=== PATIENT | male | born 1955 ===

== ENCOUNTER 2018-11-12 16:59 | Emergency (ER) | payer MEDICARE, MEDICAID ==
[2018-11-12] VITALS (14 sets, daily range): BP systolic 86–139; BP diastolic 35–83
[~2018-11-12] VITALS: Ht 180.3 cm; Wt 106.6 kg
[~2018-11-12 16:59] MED LIST: AZIT500T2; ESOM40CA52 PO; FERR-84 PO; LISI40TA PO; MULT-35 PO; MULTIVITAMIN; NADOLOL; NFBIOT1000 PO; NFPRILOC40; OMG1KC PO; PEGASUS; POTA99TA21 PO; RIBAVIRIN; SULF1TAB38 PO; VITAMIN C; VITAMIN D
--- NOTE | 2018-11-12 17:05 | NUR ---
Pt called to rm. Pt not in waiting room. This nurse was told pt was in the restroom. This nurse went to restroom to check on pt. was waiting outside restroom and stated to this nurse that just checked on pt and pt was fine.
[2018-11-12] MEDS ORDERED: IBUPROFEN 800 MG (MOTRIN) TAB PO ONE ×2 (17:45→19:00)
[2018-11-12] MEDS ORDERED: NS IV 500 ML 500 ML IV SCH (18:15)
[2018-11-12 18:19] LABS: WHITE BLOOD COUNT 10.4 10^3/uL (4.3-11.0)
[2018-11-12 18:20] LABS: BASOPHILS % (AUTO) 0 % (0-10); EOSINOPHILS % (AUTO) 0 % (0-10); HEMATOCRIT 29 % (40-54); HEMOGLOBIN 9.3 G/DL (13.3-17.7); LYMPHOCYTES # (AUTO) 0.8 X 10^3 (1.0-4.0); LYMPHOCYTES % (AUTO) 7 % (12-44); MEAN CORPUSCULAR HEMOGLOBIN 25 PG (25-34); MEAN CORPUSCULAR HGB CONC 32 G/DL (32-36); MEAN CORPUSCULAR VOLUME 78 FL (80-99); MONOCYTES # (AUTO) 0.3 X 10^3 (0.0-1.0); MONOCYTES % (AUTO) 3 % (0-12); NEUTROPHILS # (AUTO) 9.1 X 10^3 (1.8-7.8); NEUTROPHILS % (AUTO) 88 % (42-75); PLATELET COUNT 46 10^3/uL (130-400); RED CELL DISTRIBUTION WIDTH 23.8 % (10.0-14.5)
[2018-11-12 18:26] LABS: INR 1.6 (0.8-1.4); PROTHROMBIN TIME PATIENT 18.8 SEC (12.2-14.7)
--- NOTE | 2018-11-12 18:43 | Diagnostic Imaging Report ---
INDICATION: Fever and cough. COMPARISON: 09/01/2018. FINDINGS: Patchy consolidations are present within the lingula. No pleural effusion or pneumothorax. Right IJ Port-A-Cath has tip terminating in the lower SVC. Normal heart size. Normal mediastinal silhouette. IMPRESSION: 1. Lingular pneumonia. Advise followup PA and lateral chest radiographs in 4 weeks after appropriate medical management to ensure resolution. Dictated by: Dictated on workstation # [id number]
[2018-11-12 18:44] LABS: ALKALINE PHOSPHATASE 105 U/L (40-136); BILIRUBIN,TOTAL 2.7 MG/DL (0.1-1.0); BUN/CREATININE RATIO 22; CALCIUM 9.2 MG/DL (8.5-10.1); CARBON DIOXIDE 20 MMOL/L (21-32); CHLORIDE 98 MMOL/L (98-107); CREATININE SERUM 0.95 MG/DL (0.60-1.30); GFR ESTIMATED > 60; GLUCOSE 158 MG/DL (70-105); POTASSIUM 4.5 MMOL/L (3.6-5.0); SODIUM 130 MMOL/L (135-145)
[2018-11-12 18:45] LABS: ALANINE AMINOTRANSFERASE 35 U/L (0-55); ALBUMIN 2.6 GM/DL (3.2-4.5); BAND NEUTROPHILS 10 %; BASOPHILS % (MANUAL) 0 %; EOSINOPHILS % (MANUAL) 0 %; LYMPHOCYTES % (MANUAL) 10 %; MONOCYTES % (MANUAL) 3 %; NEUTROPHILS % (MANUAL) 77 %; NUCLEATED RED BLOOD CELLS 1; TOTAL PROTEIN 5.8 GM/DL (6.4-8.2)
[2018-11-12 18:46] LABS: ANISOCYTOSIS MODERATE; MICROCYTOSIS MODERATE
--- NOTE | 2018-11-12 18:51 | ED Cough/URI ---
General Chief Complaint: Fever-Adult/Adol Stated Complaint: SOB, FEVER, WEAK, CONFUSED Nursing Triage Note: Ambulatory to rm 6. Pt c/o fever, cough,SOB that has persisted for several days. Pt reports having liver cancer and is currently undergoing chemo. Pt reports recently being exposed to flu A. Sepsis Screen: No Definite Risk Source: patient, family History of Present Illness Date Seen by Provider: Nov 12, 2018 Time Seen by Provider: 18:34 Initial Comments 63-year-old male presenting with fever and cough for the last 3 days. He's feeling short of breath as well. 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 He follows with [facility] for his oncology. He did have Zithromax started by his oncologist. He has had dose of that on the . Today he was not feeling well and had a temperature up to 102.8 when his got home. She did take Tylenol and came into the emergency department. He also has had an exposure to someone with influenza A. Timing/Duration: getting worse Severity/Quality: moderate, productive cough (green sputum) Associated Symptoms: chest pain/soreness, cough, fever/chills, headache, muscle aches, shortness of breath Allergies and Home Medications Allergies Coded Allergies: hydrocodone (Verified Allergy, Unknown, 08/31/18) itching Home Medications Biotin 1,000 Mcg Tablet, 1,000 MCG PO DAILY, (Reported) Esomeprazole Magnesium 40 Mg Capsule.dr, 40 MG PO DAILY, (Reported) Ferrous Sulfate 325 Mg Tablet, 325 MG PO DAILY, (Reported) Lisinopril 40 Mg Tablet, 20-40 MG PO DAILY, (Reported) TAKES 1/2 TO 1 (40MG) TABLET Multivitamin 1 Each Tablet, 1 TAB PO DAILY, (Reported) Norris 3 Polyunsat Fatty Acids 1,000 Mg Cap, 1,000 MG PO DAILY, (Reported) Potassium Gluconate 99 Mg Tablet, 99 MG PO DAILY, (Reported) Patient Home Medication List Home Medication List Reviewed: Yes Review of Systems Review of Systems Constitutional: see HPI, chills, fever, malaise, weakness EENTM: nose congestion Respiratory: see HPI, cough, dyspnea on exertion, phlegm, short of breath Cardiovascular: no symptoms reported Gastrointestinal: no symptoms reported Genitourinary: no symptoms reported Musculoskeletal: muscle pain Skin: no symptoms reported Psychiatric/Neurological: No Symptoms Reported Hematologic/Lymphatic: No Symptoms Reported Immunological/Allergic: no symptoms reported Past Uscdchg-Uhdwhm-Yuusxo Hx Past Med/Social Hx: Reviewed Nursing Past Med/Soc Hx Patient Social History Alcohol Use: Denies Use Number of Drinks Today: CC Alcohol Beverage of Choice: Beer, Cheap Liquor Recreational Drug Use: No 2nd Hand Smoke Exposure: No Recent Foreign Travel: No Contact w/Someone Who Travel: No Recent Infectious Disease Expo: No Recent Hopitalizations: No Physical Abuse: No Sexual Abuse: No Seasonal Allergies Seasonal Allergies: No Past Medical History Surgeries: Yes (knee surgery) Abdominal Respiratory: No Cardiac: Yes Hypertension Neurological: No Genitourinary: No Gastrointestinal: Yes Gastrointestinal Bleed, Esophageal Varices, Cirrhosis Musculoskeletal: No Endocrine: No HEENT: No Cancer: Yes Liver Did You Recieve Any Treatments: Yes What Type of Treatment Did You: Chemotherapy (Last treatment 11/05/2018) [facility] Psychosocial: No Integumentary: No Blood Disorders: No Adverse Reaction/Blood Tranf: No Family Medical History No Pertinent Family Hx Physical Exam Vital Signs - First Documented 11/12/18 17:15 Temp 102.5 Pulse 83 Resp 18 B/P (MAP) 96/65 (75) Pulse Ox 94 O2 Delivery Room Air Capillary Refill : Less Than 3 Seconds Height: 5'11.00" Weight: 235lbs. 0.1oz. 106.101760bh; BMI Method:Stated General Appearance: mild distress Eyes: Bilateral Eye PERRL, Bilateral Eye EOMI HEENT: PERRL/EOMI, normal ENT inspection Neck: non-tender, full range of motion, supple Respiratory: lungs clear, decreased breath sounds, rhonchi Cardiovascular: normal peripheral pulses, regular rate, rhythm; No no edema (1 plus pitting edema in LE bilateral) Gastrointestinal: normal bowel sounds, non tender, soft, distended Extremities: normal range of motion, non-tender, normal inspection; No no pedal edema (1+ pitting edema BLE) Neurologic/Psychiatric: rehabilitation tech II-XII nml as tested, no motor/sensory deficits, alert, normal mood/affect, oriented x 3 Skin: No mottled, No rash Focused Exam Lactate Level 11/12/18 18:00: Lactic Acid Level 1.60 Lactic Acid Level Laboratory Tests Test 11/12/18 18:00 Lactic Acid Level 1.60 MMOL/L (0.50-2.00) Progress/Results/Core Measures Suspected Sepsis Recent Fever Within 48 Hours: Yes Infection Criteria Present: None New/Unexplained Altered Menta: No Sepsis Screen: No Definite Risk Within 3hrs of presentation: Admin fluids, Admin ABX, Blood cultures prior to ABX's, Lactate level SIRS Temperature:102.5 Pulse: 83 Respiratory Rate: 18 Laboratory Tests 11/12/18 18:00: White Blood Count 10.4 Blood Pressure 96 /65 Mean: 75 11/12/18 18:00: Lactic Acid Level 1.60 Laboratory Tests 11/12/18 18:00: Creatinine 0.95, INR Comment 1.6H, Platelet Count 46L, Total Bilirubin 2.7H Results/Orders Lab Results Laboratory Tests Test 11/12/18 18:00 11/12/18 22:20 Range/Units White Blood Count 10.4 4.3-11.0 10^3/uL Red Blood Count 3.70 L 4.35-5.85 10^6/uL Hemoglobin 9.3 L 13.3-17.7 G/DL Hematocrit 29 L 40-54 % Mean Corpuscular Volume 78 L 80-99 FL Mean Corpuscular Hemoglobin 25 25-34 PG Mean Corpuscular Hemoglobin Concent 32 32-36 G/DL Red Cell Distribution Width 23.8 H 10.0-14.5 % Platelet Count 46 L 130-400 10^3/uL Mean Platelet Volume 7.4-10.4 FL Neutrophils (%) (Auto) 88 H 42-75 % Lymphocytes (%) (Auto) 7 L 12-44 % Monocytes (%) (Auto) 3 0-12 % Eosinophils (%) (Auto) 0 0-10 % Basophils (%) (Auto) 0 0-10 % Neutrophils # (Auto) 9.1 H 1.8-7.8 X 10^3 Lymphocytes # (Auto) 0.8 L 1.0-4.0 X 10^3 Monocytes # (Auto) 0.3 0.0-1.0 X 10^3 Eosinophils # (Auto) 0.0 0.0-0.3 10^3/uL Basophils # (Auto) 0.0 0.0-0.1 10^3/uL Neutrophils % (Manual) 77 % Lymphocytes % (Manual) 10 % Monocytes % (Manual) 3 % Eosinophils % (Manual) 0 % Basophils % (Manual) 0 % Band Neutrophils 10 % Nucleated Red Blood Cells 1 Anisocytosis MODERATE Microcytosis MODERATE Prothrombin Time 18.8 H 12.2-14.7 SEC INR Comment 1.6 H 0.8-1.4 Activated Partial Thromboplast Time 39 H 24-35 SEC Sodium Level 130 L 135-145 MMOL/L Potassium Level 4.5 3.6-5.0 MMOL/L Chloride Level 98 98-107 MMOL/L Carbon Dioxide Level 20 L 21-32 MMOL/L Anion Gap 12 5-14 MMOL/L Blood Urea Nitrogen 21 H 7-18 MG/DL Creatinine 0.95 0.60-1.30 MG/DL Estimat Glomerular Filtration Rate > 60 BUN/Creatinine Ratio 22 Glucose Level 158 H 70-105 MG/DL Lactic Acid Level 1.60 0.50-2.00 MMOL/L Calcium Level 9.2 8.5-10.1 MG/DL Corrected Calcium 10.3 H 8.5-10.1 MG/DL Total Bilirubin 2.7 H 0.1-1.0 MG/DL Aspartate Amino Transf (AST/SGOT) 26 5-34 U/L Alanine Aminotransferase (ALT/SGPT) 35 0-55 U/L Alkaline Phosphatase 105 40-136 U/L Total Protein 5.8 L 6.4-8.2 GM/DL Albumin 2.6 L 3.2-4.5 GM/DL Serum Alcohol 10 <10 MG/DL Urine Color JAMA H Urine Clarity CLEAR Urine pH 6.0 5-9 Urine Specific [place] 1.015 L 1.016-1.022 Urine Protein NEGATIVE NEGATIVE Urine Glucose (UA) NEGATIVE NEGATIVE Urine Ketones NEGATIVE NEGATIVE Urine Nitrite NEGATIVE NEGATIVE Urine Bilirubin NEGATIVE NEGATIVE Urine Urobilinogen 0.2 NORMAL MG/DL Urine Leukocyte Esterase NEGATIVE NEGATIVE Urine RBC (Auto) NEGATIVE NEGATIVE Urine RBC RARE /HPF Urine WBC 5-10 H /HPF Urine Squamous Epithelial Cells RARE /HPF Urine Crystals NONE /LPF Urine Bacteria FEW H /HPF Urine Casts NONE /LPF Urine Mucus MODERATE H /LPF Urine Culture Indicated YES Micro Results Microbiology 11/12/18 Influenza Types A,B Antigen (PRERNA) - Final, Complete My Orders Orders - LEANDRO CRAVEN MD Alcohol (11/12/18 18:21) Ibuprofen Tablet (Motrin Tablet) (11/12/18 19:00) Ns Iv 1000 Ml (Sodium Chloride 0.9%) (11/12/18 19:00) Ns Iv 1000 Ml (Sodium Chloride 0.9%) (11/12/18 19:15) Vancomycin Injection (Vancomycin Injecti (11/12/18 19:15) Piperacillin/Tazobactam (Bulk) (Zosyn In (11/12/18 19:15) Levofloxacin 750 Mg/150 Ml Iv (Levaquin (11/12/18 19:15) Piperacillin Sodium/Tazobactam (Zosyn Vi (11/12/18 19:27) Ns (Ivpb) (Sodium Chloride 0.9% Ivpb Bag (11/12/18 19:28) Ns Iv 1000 Ml (Sodium Chloride 0.9%) (11/12/18 21:00) Vancomycin Injection (Vancomycin Injecti (11/12/18 21:13) Water (Sterile) For Injection (Sterile W (11/12/18 21:13) Norepinephrine (Levophed) (11/12/18 21:30) Medications Given in ED Current Medications Medications Dose Ordered Sig/Mony Route Start Time Stop Time Status Last Admin Dose Admin Ibuprofen 800 mg ONCE ONCE PO 11/12/18 17:45 11/12/18 17:46 DC 11/12/18 18:14 800 MG Levofloxacin/ Dextrose 150 ml @ 100 mls/hr ONCE ONCE IV 11/12/18 19:15 11/12/18 20:44 DC 11/12/18 19:47 100 MLS/HR Piperacillin Sod/ Tazobactam Sod 4.5 gm/Sodium Chloride 120 ml @ 240 mls/hr ONCE ONCE IV 11/12/18 19:15 11/12/18 19:44 DC 11/12/18 19:48 240 MLS/HR Sodium Chloride 100 ml @ ud STK-MED ONCE .ROUTE 11/12/18 19:28 11/12/18 19:31 DC 11/12/18 19:57 240 MLS/HR Sterile Water 20 ml @ ud STK-MED ONCE .ROUTE 11/12/18 21:13 11/12/18 21:16 DC 11/12/18 21:29 20 MLS/HR Vancomycin HCl 1,000 mg STK-MED ONCE .ROUTE 11/12/18 21:13 11/12/18 21:15 DC 11/12/18 21:29 1,000 MG Vital Signs/I&O 11/12/18 17:15 Temp 102.5 Pulse 83 Resp 18 B/P (MAP) 96/65 (75) Pulse Ox 94 O2 Delivery Room Air 11/13/18 00:00 Intake Total 2890 ml Balance 2890 ml Capillary Refill : Less Than 3 Seconds Blood Pressure Mean: 75 Progress Note #1: Time: 18:30 Progress Note I assumed care from dayshift and worked up patient for sepsis and hypotension. Progress Note #2: Time: 19:00 Progress Note CXR showing signs of lingular pneumonia and Influenza swab came back positive for Influenza A. With his recent chemotherapy last week and having high fever, even though he is not neutropenic will still start him on Vancomycin, Levaquin and Zosyn since he is at risk for hospital acquired infection/pneumonia. He has had orders for 2 sets of blood cultures from day shift already. His blood pressure was low so 2 liters of NS were ordered in addition to the 500 mL NS bolus ordered by dayshift. He had a normal Lactic acid of 1.6 so he does not appear to be septic but still has elevated fever and other SIRS criteria. Progress Note #3: Time: 20:20 Progress Note After 2500 ML of NS bolus he has improved BP up to 139/78 and states he is feeling better. His temp has come down to normal as well. I placed a page to the transfer center to evaluate for possible transfer and updated the patient and family. His labs appear stable for him with normal WBC count and chronic anemia, thrombocytopenia, stable Chemistry and elevated Coags. Progress Note #4: Time: 20:40 Progress Note Fe with Transfer center called back and I gave her the basic information on the patient. She called back at 2124 with a medical bed assignment for him but by then his blood pressure had started to drift back down to hypotension around 90 systolic so I ordered Levophed to help support his pressures. This also changed his status to where he would require an ICU bed and she called back at [address] Eubanks as the accepting physician and he was admitted to [facility]. He continued to remain stable while waiting for transport to and his pressures improved to above 100 Systolic. Diagnostic Imaging Diagonstic Imaging: Xray Plain Films/CT/US/NM/MRI: chest Comments Radiology read his CXR as having a Lingular infiltrate NAME: BARBARA DWYER [facility] REC#: [id number] PT STATUS: REG ER : 1955 PHYSICIAN: JOSEPH NOLAN DO ADMIT DATE: 11/12/18/ER FS Signed Date of Exam:11/12/18 CHEST PA/LAT (2 VIEW) INDICATION: Fever and cough. COMPARISON: 09/01/2018. FINDINGS: Patchy consolidations are present within the lingula. No pleural effusion or pneumothorax. Right IJ Port-A-Cath has tip terminating in the lower SVC. Normal heart size. Normal mediastinal silhouette. IMPRESSION: 1. Lingular pneumonia. Advise followup PA and lateral chest radiographs in 4 weeks after appropriate medical management to ensure resolution. Dictated by: Dictated on workstation # [id number] Dict: 11/12/18 1839 Trans: 11/12/18 [id number] Interpreted by: HEIDI BACK MD Electronically signed by: HEIDI BACK MD 11/12/181850 Reviewed: Reviewed by [facility] Critical Care Note Critical Care Total Time (minutes) 60 minutes Progress 60 minutes spent in critical care time. Time spent in direct care of the patient and reviewing chart and obtaining history from patient and chart, ordering tests and reviewing results, ordering interventions and reviewing response, discussion with consultants and with family, documentation in the chart. Departure Impression Primary Impression: Influenza A Additional Impressions: Lingular pneumonia Hypotension Qualified Codes: I95.9 - Hypotension, unspecified Immunocompromised patient Disposition: SHT-TRM HOSP Condition: Stable Transfer Time Spoke to Accepting Phy: 21:45 Transfer Progress Notes 2025 I spoke Shameka at the [facility] transfer Center. 2039 Fe from the transfer center back in the initial information on the patient for transfer 2124 Fe called back with information about the patient to be admitted to the medical surface however in the meantime his blood pressure has started to drift back down and he was hypotensive again. In light of this he was started on levo fed and she stated that he would need to be admitted to the ICU. 2144 Dr. Eubanks is the accepting ICU doctor and patient will be going to [place] [id number]. Transfer Facility: [facility] Method of Transfer: EMS Departure-Patient Inst. Referrals: NO,LOCAL PHYSICIAN (PCP) Primary Care Physician LEANDRO CRAVEN MD Nov 12, 2018 18:51
[2018-11-12] MEDS ORDERED: NS IV 1000 ML 1,000 ML IV SCH ×3 (19:00→21:00)
--- NOTE | 2018-11-12 19:05 | NUR ---
assumed care of this patient at this time from Jonelle MOISE
[2018-11-12] MEDS ORDERED: PIPERACILLIN/TAZOBACTAM (BULK) 4.5 GM in NS (IVPB) 100 ML IV ONE (19:15)
[2018-11-12] MEDS ORDERED: VANCOMYCIN INJECTION 1,000 MG in NS (IVPB) 250 ML IV SCH (19:15)
[2018-11-12] MEDS ORDERED: LEVOFLOXACIN 750 MG/150 ML IV 150 ML IV ONE (19:15)
[2018-11-12] MEDS ORDERED: PIPERACILLIN/TAZO 4.5 GM VIAL (ZOSYN) IV ONE (19:27)
[2018-11-12] MEDS ORDERED: NS (IVPB) 100 ML ONE (19:28)
[2018-11-12] MEDS ORDERED: VANCOMYCIN 1000 MG/VIAL ONE (21:13)
[2018-11-12] MEDS ORDERED: WATER (STERILE) FOR INJECTION 20 ML ONE (21:13)
[2018-11-12] MEDS ORDERED: NOREPINEPHRINE 4 MG in NS (IVPB) 250 ML IV SCH (21:30)
[2018-11-12 22:37] LABS: BACTERIA,URINE FEW /HPF; BILIRUBIN,URINE NEGATIVE (NEGATIVE); CLARITY,URINE CLEAR; COLOR,URINE AMBER; GLUCOSE, URINE (UA) NEGATIVE (NEGATIVE); KETONES,URINE NEGATIVE (NEGATIVE); LEUKOCYTE ESTERASE ,URINE NEGATIVE (NEGATIVE); NITRITE,URINE NEGATIVE (NEGATIVE); PROTEIN,URINE NEGATIVE (NEGATIVE); RBC,URINE RARE /HPF; UROBILINOGEN,URINE 0.2 MG/DL (NORMAL)
[2018-11-12 22:38] LABS: SQUAMOUS EPITHELIAL CELL,UR RARE /HPF
== END 2018-11-12 22:35 | disposition short-term general hospital (02) ==
LOC: EDUNIT# 16:59 → ER FS 17:01
DX: J10.1 Influenza due to other identified influenza virus with other respiratory manifestations (principal); I95.9 Hypotension, unspecified; J18.8 Other pneumonia, unspecified organism; C22.9 Malignant neoplasm of liver, not specified as primary or secondary; I10 Essential (primary) hypertension; K74.60 Unspecified cirrhosis of liver; Z88.5 Allergy status to narcotic agent
CPT/HCPCS: 36415; 71046; 80053; 80320; 81000; 83605; 85007; 85027; 85610; 85730; 87040; 87077; 87088; 87804

== ENCOUNTER → 2018-11-21 | Outpatient (CLI) | payer MEDICARE, MEDICAID ==
[2018-11-21 08:36] LABS: CHLORIDE 102 MMOL/L (98-107); POTASSIUM 3.4 MMOL/L (3.6-5.0); SODIUM 135 MMOL/L (135-145)
[2018-11-21 08:37] LABS: ALANINE AMINOTRANSFERASE 23 U/L (0-55); ALBUMIN 2.6 GM/DL (3.2-4.5); ALKALINE PHOSPHATASE 121 U/L (40-136); BILIRUBIN,TOTAL 1.3 MG/DL (0.1-1.0); BUN/CREATININE RATIO 11; CALCIUM 8.7 MG/DL (8.5-10.1); CARBON DIOXIDE 21 MMOL/L (21-32); CREATININE SERUM 1.04 MG/DL (0.60-1.30); GFR ESTIMATED > 60; GLUCOSE 156 MG/DL (70-105); MAGNESIUM 1.5 MG/DL (1.8-2.4); TOTAL PROTEIN 6.7 GM/DL (6.4-8.2)
[2018-11-21 10:38] LABS: HEMATOCRIT 31 % (40-54); HEMOGLOBIN 9.7 G/DL (13.3-17.7); MEAN CORPUSCULAR HEMOGLOBIN 25 PG (25-34); MEAN CORPUSCULAR HGB CONC 31 G/DL (32-36); MEAN CORPUSCULAR VOLUME 80 FL (80-99); MEAN PLATELET VOLUME 10.9 FL (7.4-10.4); PLATELET COUNT 132 10^3/uL (130-400); RED CELL DISTRIBUTION WIDTH 24.9 % (10.0-14.5); WHITE BLOOD COUNT 4.4 10^3/uL (4.3-11.0)
[2018-11-21 10:39] LABS: BASOPHILS # (AUTO) 0.1 10^3/uL (0.0-0.1); BASOPHILS % (AUTO) 1 % (0-10); EOSINOPHILS # (AUTO) 0.1 10^3/uL (0.0-0.3); EOSINOPHILS % (AUTO) 2 % (0-10); LYMPHOCYTES # (AUTO) 1.3 X 10^3 (1.0-4.0); LYMPHOCYTES % (AUTO) 30 % (12-44); MONOCYTES # (AUTO) 0.6 X 10^3 (0.0-1.0); MONOCYTES % (AUTO) 14 % (0-12); NEUTROPHILS # (AUTO) 2.2 X 10^3 (1.8-7.8); NEUTROPHILS % (AUTO) 51 % (42-75)
[2018-11-21 10:40] LABS: BAND NEUTROPHILS 3 %; LYMPHOCYTES % (MANUAL) 29 %; MONOCYTES % (MANUAL) 6 %; NEUTROPHILS % (MANUAL) 52 %
[2018-11-21 10:41] LABS: ANISOCYTOSIS SLIGHT; ATYPICAL LYMPHOCYTES 2 %; BASOPHILS % (MANUAL) 2 %; EOSINOPHILS % (MANUAL) 1 %; METAMYELOCYTES % 1 %; MYELOCYTES % 4 %; POIKILOCYTOSIS SLIGHT
== END ==
LOC: LAB FS 07:27
PROVIDERS: ATTEND Internal Medicine
DX: C22.1 Intrahepatic bile duct carcinoma (principal)
CPT/HCPCS: 36415; 80053; 83735; 85007; 85027

== ENCOUNTER 2018-12-28 04:10 | Emergency (ER) | payer MEDICARE, MEDICAID ==
[~2018-12-28] VITALS: Ht 177.8 cm; Wt 99.8 kg
--- OUTSIDE RECORDS SUMMARY | 2018-12-28 04:16 | XMS REPORT | Continuity of Care Document ---
Author Organization Unknown Address Unknown Allergies Active Description Code Type Severity Reaction Onset Reported/Identified Relationship to Patient Clinical Status Yes NKANo Known Allergies NKA Miscellaneous Allergy Mild N/A 07/01/2009 Yes hydrocodone [id number] Drug Allergy Unknown N/A 2018 Medications There is no data. 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 09/01/2018 MARS CORONEL MD, Ot I95.9 HYPOTENSION, UNSPECIFIED 09/01/2018 MARS CORONEL MD, Ot K44.9 DIAPHRAGMATIC HERNIA WITHOUT OBSTRUCTION 09/01/2018 MARS CORONEL MD, Ot K70.30 ALCOHOLIC CIRRHOSIS OF LIVER WITHOUT ASC 09/01/2018 MARS CORONEL MD, Ot K92.2 GASTROINTESTINAL HEMORRHAGE, UNSPECIFIED 09/01/2018 MARS CORONEL MD, Ot R50.9 FEVER, UNSPECIFIED 11/12/2018 LEANDRO CRAVEN MD, Ot C22.9 MALIG NEOPLASM OF LIVER, NOT SPECIFIED A 11/12/2018 LEANDRO CRAVEN MD, Ot I10 ESSENTIAL (PRIMARY) HYPERTENSION 11/12/2018 ENYART MD, LEANDRO E Ot I95.9 HYPOTENSION, UNSPECIFIED 11/12/2018 LEANDRO CRAVEN MD Ot J10.1 FLU DUE TO OTH IDENT INFLUENZA VIRUS W O 11/12/2018 LEANDRO CRAVEN MD Ot J18.8 OTHER PNEUMONIA, UNSPECIFIED ORGANISM 11/12/2018 LEANDRO CRAVEN MD Ot K74.60 UNSPECIFIED CIRRHOSIS OF LIVER 11/12/2018 LEANDRO CRAVEN MD Ot R50.9 FEVER, UNSPECIFIED 11/12/2018 LEANDRO CRAVEN MD Ot Z88.5 ALLERGY STATUS TO NARCOTIC AGENT STATUS 11/14/2018 LEANDRO CRAVEN MD Ot C22.9 MALIG NEOPLASM OF LIVER, NOT SPECIFIED A 11/14/2018 LEANDRO CRAVEN MD Ot I10 ESSENTIAL (PRIMARY) HYPERTENSION 11/14/2018 LEANDRO CRAVEN MD Ot I95.9 HYPOTENSION, UNSPECIFIED 11/14/2018 LEANDRO CRAVEN MD Ot J10.1 FLU DUE TO OTH IDENT INFLUENZA VIRUS W O 11/14/2018 LEANDRO CRAVEN MD Ot J18.8 OTHER PNEUMONIA, UNSPECIFIED ORGANISM 11/14/2018 LEANDRO CRAVEN MD Ot K74.60 UNSPECIFIED CIRRHOSIS OF LIVER 11/14/2018 LEANDRO CRAVEN MD Ot R50.9 FEVER, UNSPECIFIED 11/14/2018 LEANDRO CRAVEN MD Ot Z88.5 ALLERGY STATUS TO NARCOTIC AGENT STATUS 11/28/2018 KINGA BEE MD Ot 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 12/03/2018 KINGA BEE MD Ot 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 12/03/2018 KINGA BEE MD Ot 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 12/14/2018 KINGA BEE MD Ot 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 12/21/2018 KINGA BEE MD Ot 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 Procedures Code Description Performed By Performed On [id number] INSPECTION OF UPPER INTESTINAL TRACT, EN 2018 Results Test Result Range Complete blood count (CBC) with automated white blood cell (WBC) differential - 08/31/18 15:45 Blood leukocytes automated count (number/volume) 12.2 10*3/uL 4.3-11.0 Blood erythrocytes automated count (number/volume) 3.57 10*6/uL 4.35-5.85 Venous blood hemoglobin measurement (mass/volume) 11.6 g/dL 13.3-17.7 Blood hematocrit (volume fraction) 33 % 40-54 Automated erythrocyte mean corpuscular volume 94 [foz_us] 80-99 Automated erythrocyte mean corpuscular hemoglobin (mass per erythrocyte) 32 pg 25-34 Automated erythrocyte mean corpuscular hemoglobin concentration measurement ( mass/volume) 35 g/dL 32-36 Automated erythrocyte distribution width ratio 15.6 % 10.0-14.5 Automated blood platelet count (count/volume) 131 10*3/uL 130-400 Automated blood platelet mean volume measurement 12.0 [foz_us] 7.4-10.4 Automated blood neutrophils/100 leukocytes 74 % 42-75 Automated blood lymphocytes/100 leukocytes 16 % 12-44 Blood monocytes/100 leukocytes 10 % 0-12 Automated blood eosinophils/100 leukocytes 0 % 0-10 Automated blood basophils/100 leukocytes 0 % 0-10 Blood neutrophils automated count (number/volume) 9.1 10*3 1.8-7.8 Blood lymphocytes automated count (number/volume) 1.9 10*3 1.0-4.0 Blood monocytes automated count (number/volume) 1.2 10*3 0.0-1.0 Automated eosinophil count 0.1 10*3/uL 0.0-0.3 Automated blood basophil count (count/volume) 0.0 10*3/uL 0.0-0.1 Ammonia - 08/31/18 15:45 Ammonia 69 umol/L 11-32 Serum or plasma ethanol measurement (mass/volume) - 08/31/18 15:45 Serum or plasma ethanol measurement (mass/volume) < mg/dL <10 PT panel in platelet poor plasma by coagulation assay - 08/31/18 15:45 Prothrombin time (PT) in platelet poor plasma by coagulation assay 17.8 s 12.2-14.7 INR in platelet poor plasma or blood by coagulation assay 1.5 0.8-1.4 Capillary blood glucose measurement by glucometer (mass/volume) - 08/31/18 15: 54 Capillary blood glucose measurement by glucometer (mass/volume) 138 mg/dL 70-110 Blood type T Indirect antibody screen panel - 08/31/18 15:55 ABO+Rh group OP NRG Transfusion band number [id number] NRG Blood group antibody screen NEGATIVE NRG RED CELLS LEUKO REDUCED AS1 - 08/31/18 15:55 RED CELLS LEUKO REDUCED AS1 TRANSFUSED 08/31/182044 NRG Blood type T Indirect antibody screen panel - 08/31/18 15:55 ABO+Rh group OP NRG Transfusion band number [id number] NRG Blood group antibody screen NEGATIVE NRG Complete urinalysis with reflex to culture - 08/31/18 21:52 Urine color determination DARK YELLOW NRG Urine clarity determination CLEAR NRG Urine pH measurement by test strip 6 5-9 Specific gravity of urine by test strip 1.010 1.016- 1.022 Urine protein assay by test strip, semi-quantitative NEGATIVE NEGATIVE Urine glucose detection by automated test strip NEGATIVE NEGATIVE Erythrocytes detection in urine sediment by light microscopy 3+ NEGATIVE Urine ketones detection by automated test strip 1+ NEGATIVE Urine nitrite detection by test strip NEGATIVE NEGATIVE Urine total bilirubin detection by test strip NEGATIVE NEGATIVE Urine urobilinogen measurement by automated test strip (mass/volume) NORMAL NORMAL Urine leukocyte esterase detection by dipstick 1+ NEGATIVE Automated urine sediment erythrocyte count by microscopy (number/high power field) [HPF] NRG Automated urine sediment leukocyte count by microscopy (number/high power field ) [HPF] NRG Bacteria detection in urine sediment by light microscopy TRACE NRG Squamous epithelial cells detection in urine sediment by light microscopy NONE NRG Crystals detection in urine sediment by light microscopy NONE NRG Casts detection in urine sediment by light microscopy PRESENT NRG Mucus detection in urine sediment by light microscopy SMALL NRG Complete urinalysis with reflex to culture NO NRG Hyaline casts detection in urine sediment by light microscopy 0-2 NRG Complete blood count (CBC) with automated white blood cell (WBC) differential - 09/01/18 03:25 Blood leukocytes automated count (number/volume) 23.8 10*3/uL 4.3-11.0 Blood erythrocytes automated count (number/volume) 3.47 10*6/uL 4.35-5.85 Venous blood hemoglobin measurement (mass/volume) 11.2 g/dL 13.3-17.7 Blood hematocrit (volume fraction) 32 % 40-54 Automated erythrocyte mean corpuscular volume 92 [foz_us] 80-99 Automated erythrocyte mean corpuscular hemoglobin (mass per erythrocyte) 32 pg 25-34 Automated erythrocyte mean corpuscular hemoglobin concentration measurement ( mass/volume) 35 g/dL 32-36 Automated erythrocyte distribution width ratio 16.0 % 10.0-14.5 Automated blood platelet count (count/volume) 117 10*3/uL 130-400 Automated blood platelet mean volume measurement 11.8 [foz_us] 7.4-10.4 Automated blood neutrophils/100 leukocytes 86 % 42-75 Automated blood lymphocytes/100 leukocytes 6 % 12-44 Blood monocytes/100 leukocytes 7 % 0-12 Automated blood eosinophils/100 leukocytes 0 % 0-10 Automated blood basophils/100 leukocytes 0 % 0-10 Blood neutrophils automated count (number/volume) 20.5 10*3 1.8-7.8 Blood lymphocytes automated count (number/volume) 1.5 10*3 1.0-4.0 Blood monocytes automated count (number/volume) 1.7 10*3 0.0-1.0 Automated eosinophil count 0.0 10*3/uL 0.0-0.3 Automated blood basophil count (count/volume) 0.0 10*3/uL 0.0-0.1 PT panel in platelet poor plasma by coagulation assay - 09/01/18 03:25 Prothrombin time (PT) in platelet poor plasma by coagulation assay 18.1 s 12.2-14.7 INR in platelet poor plasma or blood by coagulation assay 1.5 0.8-1.4 Comprehensive metabolic panel - 09/01/18 03:25 Serum or plasma sodium measurement (moles/volume) 145 mmol/L 135-145 Serum or plasma potassium measurement (moles/volume) 4.4 mmol/L 3.6-5.0 Serum or plasma chloride measurement (moles/volume) 117 mmol/L 98-107 Carbon dioxide 19 mmol/L 21-32 Serum or plasma anion gap determination (moles/volume) 9 mmol/L 5-14 Serum or plasma urea nitrogen measurement (mass/volume) 65 mg/dL 7-18 Serum or plasma creatinine measurement (mass/volume) 0.93 mg/dL 0.60-1.30 Serum or plasma urea nitrogen/creatinine mass ratio 70 NRG Serum or plasma creatinine measurement with calculation of estimated glomerular filtration rate > NRG Serum or plasma glucose measurement (mass/volume) 153 mg/dL 70-105 Serum or plasma calcium measurement (mass/volume) 8.4 mg/dL 8.5-10.1 Serum or plasma total bilirubin measurement (mass/volume) 5.0 mg/dL 0.1-1.0 Serum or plasma alkaline phosphatase measurement (enzymatic activity/volume) 59 U/L 40-136 Serum or plasma aspartate aminotransferase measurement (enzymatic activity/ volume) 37 U/L 5-34 Serum or plasma alanine aminotransferase measurement (enzymatic activity/volume ) 22 U/L 0-55 Serum or plasma protein measurement (mass/volume) 5.1 g/dL 6.4-8.2 Serum or plasma albumin measurement (mass/volume) 2.8 g/dL 3.2-4.5 CALCIUM CORRECTED 9.4 mg/dL 8.5-10.1 Serum or plasma phosphate measurement (mass/volume) - 09/01/18 03:25 Serum or plasma phosphate measurement (mass/volume) 2.9 mg/dL 2.3-4.7 Magnesium - 09/01/18 03:25 Magnesium 1.6 mg/dL 1.8-2.4 Influenza virus A and B antigen detection - 09/01/18 03:45 FLU RESULT NEGATIVE FOR INFLUENZA A AND B ANTIGENS BY IA [facility] Blood lactic acid measurement (moles/volume) - 09/01/18 04:01 Blood lactic acid measurement (moles/volume) 2.32 mmol/L 0.50-2.00 PROCALCITONIN (PCT) - 09/01/18 04:01 PROCALCITONIN (PCT) 0.58 ng/mL <0.10 Serum or plasma amylase measurement (enzymatic activity/volume) - 09/01/18 04: 01 Serum or plasma amylase measurement (enzymatic activity/volume) 26 U /L 25-125 Lipase - 09/01/18 04:01 Lipase 30 U/L 8-78 Bacterial blood culture - 09/01/18 04:01 Bacterial blood culture NG [facility] Bacterial blood culture - 09/01/18 04:30 Bacterial blood culture NG [facility] Serum or plasma lactate measurement (moles/volume) - 09/01/18 06:07 Serum or plasma lactate measurement (moles/volume) 2.32 mmol/L 0.50-2.00 Arterial blood gas measurement - 09/01/18 06:45 Blood pCO2 29 mm[Hg] 35-45 Blood pO2 69 mm[Hg] 79-93 Arterial blood bicarbonate measurement (moles/volume) 19 mmol/L 23-27 Arterial blood base excess by calculation -5.1 mmol/L - 2.5-2.5 Arterial blood oxygen saturation measurement 95 % 94-100 * Inhaled oxygen flow rate 2L NRG Arterial blood pH measurement with patient temperature correction 7.42 7.37-7.43 Arterial blood carbon dioxide, total measurement (moles/volume) 19.4 mmol/L 21.0-31.0 Body site L RAD NRG Assessment of wrist artery patency prior to arterial puncture YES- POS NRG Setting of ventilation mode NO NRG Measurement of body temperature 98.9 NRG Complete blood count (CBC) with automated white blood cell (WBC) differential - 09/01/18 11:30 Blood leukocytes automated count (number/volume) 26.5 10*3/uL 4.3-11.0 Blood erythrocytes automated count (number/volume) 3.26 10*6/uL 4.35-5.85 Venous blood hemoglobin measurement (mass/volume) 10.6 g/dL 13.3-17.7 Blood hematocrit (volume fraction) 31 % 40-54 Automated erythrocyte mean corpuscular volume 94 [foz_us] 80-99 Automated erythrocyte mean corpuscular hemoglobin (mass per erythrocyte) 33 pg 25-34 Automated erythrocyte mean corpuscular hemoglobin concentration measurement ( mass/volume) 35 g/dL 32-36 Automated erythrocyte distribution width ratio 16.4 % 10.0-14.5 Automated blood platelet count (count/volume) 126 10*3/uL 130-400 Automated blood platelet mean volume measurement 12.1 [foz_us] 7.4-10.4 Automated blood neutrophils/100 leukocytes 77 % 42-75 Automated blood lymphocytes/100 leukocytes 14 % 12-44 Blood monocytes/100 leukocytes 7 % 0-12 Automated blood eosinophils/100 leukocytes 1 % 0-10 Automated blood basophils/100 leukocytes 0 % 0-10 Blood neutrophils automated count (number/volume) 20.5 10*3 1.8-7.8 Blood lymphocytes automated count (number/volume) 3.7 10*3 1.0-4.0 Blood monocytes automated count (number/volume) 2.0 10*3 0.0-1.0 Automated eosinophil count 0.2 10*3/uL 0.0-0.3 Automated blood basophil count (count/volume) 0.1 10*3/uL 0.0-0.1 Blood manual differential performed detection - 09/01/18 11:30 Blood monocytes/100 leukocytes 3 % NRG Manual blood segmented neutrophils/100 leukocytes 88 % NRG Manual blood lymphocytes/100 leukocytes 8 % NRG Manual eosinophils/100 leukocytes in nose 1 % NRG Blood polychromasia detection by light microscopy SLIGHT NRG Blood anisocytosis detection by light microscopy SLIGHT NRG Blood poikilocytosis detection by light microscopy SLIGHT NRG Blood spherocytes detection by light microscopy SLIGHT NRG Blood CBC with ordered manual differential panel - 11/12/18 18:00 Blood leukocytes automated count (number/volume) 10.4 10*3/uL 4.3-11.0 Blood erythrocytes automated count (number/volume) 3.70 10*6/uL 4.35-5.85 Venous blood hemoglobin measurement (mass/volume) 9.3 g/dL 13.3-17.7 Blood hematocrit (volume fraction) 29 % 40-54 Automated erythrocyte mean corpuscular volume 78 [foz_us] 80-99 Automated erythrocyte mean corpuscular hemoglobin (mass per erythrocyte) 25 pg 25-34 Automated erythrocyte mean corpuscular hemoglobin concentration measurement ( mass/volume) 32 g/dL 32-36 Automated erythrocyte distribution width ratio 23.8 % 10.0-14.5 Automated blood platelet count (count/volume) 46 10*3/uL 130-400 Automated blood neutrophils/100 leukocytes 88 % 42-75 Automated blood lymphocytes/100 leukocytes 7 % 12-44 Blood monocytes/100 leukocytes 3 % NRG Automated blood eosinophils/100 leukocytes 0 % 0-10 Automated blood basophils/100 leukocytes 0 % 0-10 Blood neutrophils automated count (number/volume) 9.1 10*3 1.8-7.8 Blood lymphocytes automated count (number/volume) 0.8 10*3 1.0-4.0 Blood monocytes automated count (number/volume) 0.3 10*3 0.0-1.0 Automated eosinophil count 0.0 10*3/uL 0.0-0.3 Automated blood basophil count (count/volume) 0.0 10*3/uL 0.0-0.1 Manual blood segmented neutrophils/100 leukocytes 77 % NRG Blood band neutrophils/100 leukocytes 10 % NRG Manual blood lymphocytes/100 leukocytes 10 % NRG Manual eosinophils/100 leukocytes in nose 0 % NRG Manual blood basophils/100 leukocytes 0 % NRG Blood anisocytosis detection by light microscopy MODERATE NRG Manual blood nucleated erythrocytes/100 leukocytes ratio 1 NRG Blood microcytes detection by light microscopy MODERATE NRG PT panel in platelet poor plasma by coagulation assay - 11/12/18 18:00 Prothrombin time (PT) in platelet poor plasma by coagulation assay 18.8 s 12.2-14.7 INR in platelet poor plasma or blood by coagulation assay 1.6 0.8-1.4 Activated partial thromboplastin time (aPTT) in platelet poor plasma bycoagulation assay - 11/12/18 18:00 Activated partial thromboplastin time (aPTT) in platelet poor plasma bycoagulation assay 39 s 24-35 Comprehensive metabolic panel - 11/12/18 18:00 Serum or plasma sodium measurement (moles/volume) 130 mmol/L 135-145 Serum or plasma potassium measurement (moles/volume) 4.5 mmol/L 3.6-5.0 Serum or plasma chloride measurement (moles/volume) 98 mmol/L 98-107 Carbon dioxide 20 mmol/L 21-32 Serum or plasma anion gap determination (moles/volume) 12 mmol/L 5-14 Serum or plasma urea nitrogen measurement (mass/volume) 21 mg/dL 7-18 Serum or plasma creatinine measurement (mass/volume) 0.95 mg/dL 0.60-1.30 Serum or plasma urea nitrogen/creatinine mass ratio 22 NRG Serum or plasma creatinine measurement with calculation of estimated glomerular filtration rate > NRG Serum or plasma glucose measurement (mass/volume) 158 mg/dL 70-105 Serum or plasma calcium measurement (mass/volume) 9.2 mg/dL 8.5-10.1 Serum or plasma total bilirubin measurement (mass/volume) 2.7 mg/dL 0.1-1.0 Serum or plasma alkaline phosphatase measurement (enzymatic activity/volume) 105 U/L 40-136 Serum or plasma aspartate aminotransferase measurement (enzymatic activity/ volume) 26 U/L 5-34 Serum or plasma alanine aminotransferase measurement (enzymatic activity/volume ) 35 U/L 0-55 Serum or plasma protein measurement (mass/volume) 5.8 g/dL 6.4-8.2 Serum or plasma albumin measurement (mass/volume) 2.6 g/dL 3.2-4.5 CALCIUM CORRECTED 10.3 mg/dL 8.5-10.1 Serum or plasma ethanol measurement (mass/volume) - 11/12/18 18:00 Serum or plasma ethanol measurement (mass/volume) 10 mg/dL <10 Blood lactic acid measurement (moles/volume) - 11/12/18 18:00 Blood lactic acid measurement (moles/volume) 1.60 mmol/L 0.50-2.00 Bacterial blood culture - 11/12/18 18:00 FREE TEXT EXTERNAL [facility] REFERENCE LAB REPORTED NRG QUANTITY OF GROWTH . NRG Bacterial blood culture SEE COMMEN NRG FREE TEXT ENTRY 2 SUSCEPTIBILITY 11/15/18 13:05 NRG FREE TEXT ENTRY 3 ID REPORT RCD 11/14/18 12:05 NRG Influenza virus A and B antigen detection - 11/12/18 18:20 CALL POSITIVES (F1 HELP) ILANA NRG FLU RESULT POSITIVE FOR INFLUENZA A ANTIGEN, NEG FOR B ANTIGEN, BY IA NRG Bacterial blood culture - 11/12/18 19:35 FREE TEXT EXTERNAL REFER TO PREVIOUS CULTURE FOR NRG QUANTITY OF GROWTH . NRG Bacterial blood culture SEE COMMEN NRG FREE TEXT ENTRY 2 SUSCEPTIBILITY. NRG FREE TEXT ENTRY 3 TESTING BY [facility] REFERENCE LAB NRG Complete urinalysis with reflex to culture - 11/12/18 22:20 Urine color determination JAMA NRG Urine clarity determination CLEAR NRG Urine pH measurement by test strip 6.0 5-9 Specific gravity of urine by test strip 1.015 1.016- 1.022 Urine protein assay by test strip, semi-quantitative NEGATIVE NEGATIVE Urine glucose detection by automated test strip NEGATIVE NEGATIVE Erythrocytes detection in urine sediment by light microscopy NEGATIVE NEGATIVE Urine ketones detection by automated test strip NEGATIVE NEGATIVE Urine nitrite detection by test strip NEGATIVE NEGATIVE Urine total bilirubin detection by test strip NEGATIVE NEGATIVE Urine urobilinogen measurement by automated test strip (mass/volume) 0.2 mg/dL NORMAL Urine leukocyte esterase detection by dipstick NEGATIVE NEGATIVE Automated urine sediment erythrocyte count by microscopy (number/high power field) RARE NRG Automated urine sediment leukocyte count by microscopy (number/high power field ) [HPF] NRG Bacteria detection in urine sediment by light microscopy FEW NRG Squamous epithelial cells detection in urine sediment by light microscopy RARE NRG Crystals detection in urine sediment by light microscopy NONE NRG Casts detection in urine sediment by light microscopy NONE NRG Mucus detection in urine sediment by light microscopy MODERATE NRG Complete urinalysis with reflex to culture YES [facility] Bacterial urine culture - 11/12/18 22:20 Bacterial urine culture NG [facility] Comprehensive metabolic panel - 11/21/18 07:45 Serum or plasma sodium measurement (moles/volume) 135 mmol/L 135-145 Serum or plasma potassium measurement (moles/volume) 3.4 mmol/L 3.6-5.0 Serum or plasma chloride measurement (moles/volume) 102 mmol/L 98-107 Carbon dioxide 21 mmol/L 21-32 Serum or plasma anion gap determination (moles/volume) 12 mmol/L 5-14 Serum or plasma urea nitrogen measurement (mass/volume) 11 mg/dL 7-18 Serum or plasma creatinine measurement (mass/volume) 1.04 mg/dL 0.60-1.30 Serum or plasma urea nitrogen/creatinine mass ratio 11 NRG Serum or plasma creatinine measurement with calculation of estimated glomerular filtration rate > NRG Serum or plasma glucose measurement (mass/volume) 156 mg/dL 70-105 Serum or plasma calcium measurement (mass/volume) 8.7 mg/dL 8.5-10.1 Serum or plasma total bilirubin measurement (mass/volume) 1.3 mg/dL 0.1-1.0 Serum or plasma alkaline phosphatase measurement (enzymatic activity/volume) 121 U/L 40-136 Serum or plasma aspartate aminotransferase measurement (enzymatic activity/ volume) 31 U/L 5-34 Serum or plasma alanine aminotransferase measurement (enzymatic activity/volume ) 23 U/L 0-55 Serum or plasma protein measurement (mass/volume) 6.7 g/dL 6.4-8.2 Serum or plasma albumin measurement (mass/volume) 2.6 g/dL 3.2-4.5 CALCIUM CORRECTED 9.8 mg/dL 8.5-10.1 Magnesium - 11/21/18 07:45 Magnesium 1.5 mg/dL 1.8-2.4 Complete blood count (CBC) with automated white blood cell (WBC) differential - 11/21/18 07:45 Blood leukocytes automated count (number/volume) 4.4 10*3/uL 4.3-11.0 Blood erythrocytes automated count (number/volume) 3.88 10*6/uL 4.35-5.85 Venous blood hemoglobin measurement (mass/volume) 9.7 g/dL 13.3-17.7 Blood hematocrit (volume fraction) 31 % 40-54 Automated erythrocyte mean corpuscular volume 80 [foz_us] 80-99 Automated erythrocyte mean corpuscular hemoglobin (mass per erythrocyte) 25 pg 25-34 Automated erythrocyte mean corpuscular hemoglobin concentration measurement ( mass/volume) 31 g/dL 32-36 Automated erythrocyte distribution width ratio 24.9 % 10.0-14.5 Automated blood platelet count (count/volume) 132 10*3/uL 130-400 Automated blood platelet mean volume measurement 10.9 [foz_us] 7.4-10.4 Automated blood neutrophils/100 leukocytes 51 % 42-75 Automated blood lymphocytes/100 leukocytes 30 % 12-44 Blood monocytes/100 leukocytes 14 % 0-12 Automated blood eosinophils/100 leukocytes 2 % 0-10 Automated blood basophils/100 leukocytes 1 % 0-10 Blood neutrophils automated count (number/volume) 2.2 10*3 1.8-7.8 Blood lymphocytes automated count (number/volume) 1.3 10*3 1.0-4.0 Blood monocytes automated count (number/volume) 0.6 10*3 0.0-1.0 Automated eosinophil count 0.1 10*3/uL 0.0-0.3 Automated blood basophil count (count/volume) 0.1 10*3/uL 0.0-0.1 Blood manual differential performed detection - 11/21/18 07:45 Blood monocytes/100 leukocytes 6 % NRG Manual blood segmented neutrophils/100 leukocytes 52 % NRG Blood band neutrophils/100 leukocytes 3 % NRG Manual blood lymphocytes/100 leukocytes 29 % NRG Manual eosinophils/100 leukocytes in nose 1 % NRG Manual blood basophils/100 leukocytes 2 % NRG Manual blood lymphocytes variant/100 leukocytes 2 % NRG Blood anisocytosis detection by light microscopy SLIGHT NRG Manual blood metamyelocytes/100 leukocytes 1 % NRG Blood poikilocytosis detection by light microscopy SLIGHT NRG Manual blood myelocytes/100 leukocytes 4 % NRG Encounters ACCT No. Visit Date/Time Discharge Status Pt. Type Provider Facility Loc./Unit Complaint [id number] 11/21/2018 07:27:00 11/21/2018 23:59:59 CLS Outpatient ROHIT TEJEDA, KINGA [place] [facility] LAB FS CBC; CMP; MAGNESIUM [id number] 11/12/2018 17:01:00 11/12/2018 22:35:00 DIS Emergency MERISSA TEJEDA, LEANDRO [place] ER FS SOB, FEVER, WEAK, CONFUSED [id number] 09/12/2018 12:18:00 09/12/2018 23:59:59 CLS Preadmit OTHER, UNLISTED [facility] RAD LIVER DISEASE DUE TO ALCOHOL [id number] 2018 14:50:00 09/01/2018 14:41:00 DIS Inpatient HOMER TEJEDA, MARS [place] [facility] ICU GI BLEED
[2018-12-28] MEDS ORDERED: NS IV 500 ML 500 ML IV ONE ×2 (04:28→06:43)
--- NOTE | 2018-12-28 04:30 | ED Abdominal Pain ---
General Chief Complaint: Abdominal/GI Problems Stated Complaint: LOW BP;STOMACHE PAIN;RECIEVING CHEMO Source of Information: Patient, Family Exam Limitations: No Limitations History of Present Illness Date Seen by Provider: December 28, 2018 Time Seen by Provider: 04:19 Initial Comments 63-year-old male with history of cirrhosis and bile duct cancer currently undergoing chemotherapy presents with onset of lower abdominal pain and weakness. He found his blood pressure below at home. He states he has not been drinking much in the way of fluids and comes here for evaluation. No blood in his stool or other GI complaints. He took lactulose this evening. Allergies and Home Medications Allergies Coded Allergies: hydrocodone (Verified Allergy, Unknown, 08/31/18) itching Home Medications Biotin 1,000 Mcg Tablet, 1,000 MCG PO DAILY, (Reported) Esomeprazole Magnesium 40 Mg Capsule.dr, 40 MG PO DAILY, (Reported) Ferrous Sulfate 325 Mg Tablet, 325 MG PO DAILY, (Reported) Lisinopril 40 Mg Tablet, 20-40 MG PO DAILY, (Reported) TAKES 1/2 TO 1 (40MG) TABLET Multivitamin 1 Each Tablet, 1 TAB PO DAILY, (Reported) Bliss 3 Polyunsat Fatty Acids 1,000 Mg Cap, 1,000 MG PO DAILY, (Reported) Potassium Gluconate 99 Mg Tablet, 99 MG PO DAILY, (Reported) Patient Home Medication List Home Medication List Reviewed: Yes Review of Systems Review of Systems Constitutional: No chills, No fever; weakness EENTM: No Symptoms Reported Respiratory: No Symptoms Reported Cardiovascular: No Symptoms Reported Gastrointestinal: Abdomen Distended, Abdominal Pain, Nausea; Denies Vomiting Genitourinary: No Symptoms Reported Musculoskeletal: no symptoms reported Skin: no symptoms reported Psychiatric/Neurological: No Symptoms Reported Endocrine: No Symptoms Reported Hematologic/Lymphatic: See HPI Past [id number] Hx Past Med/Social Hx: Reviewed Nursing Past Med/Soc Hx Patient Social History Alcohol Beverage of Choice: Beer, Cheap Liquor 2nd Hand Smoke Exposure: No Recent Foreign Travel: No Contact w/Someone Who Travel: No Recent Hopitalizations: No Seasonal Allergies Seasonal Allergies: No Past Medical History Surgeries: Yes (knee surgery) Abdominal Respiratory: No Cardiac: Yes Hypertension Neurological: No Genitourinary: No Gastrointestinal: Yes Gastrointestinal Bleed, Esophageal Varices, Cirrhosis Musculoskeletal: No Endocrine: No HEENT: No Cancer: Yes Liver Did You Recieve Any Treatments: Yes What Type of Treatment Did You: Chemotherapy Psychosocial: No Integumentary: No Blood Disorders: No Adverse Reaction/Blood Tranf: No Family Medical History No Pertinent Family Hx Physical Exam Vital Signs Vital Signs - First Documented 12/28/18 04:17 Temp 96.9 Pulse 97 Resp 16 B/P (MAP) 98/71 (80) Pulse Ox 100 O2 Delivery Room Air Capillary Refill : Height/Weight/BMI Height: 5'11.00" Weight: 235lbs. 0.1oz. [id number]; BMI Method:Stated General Appearance: WD/WN, moderate distress HEENT: PERRL/EOMI, TMs normal, pharynx normal, scleral icterus (R), scleral icterus (L), pale conjunctivae (R), pale conjunctivae (L) Neck: non-tender, full range of motion, supple, normal inspection Respiratory: lungs clear, no respiratory distress, no accessory muscle use, decreased breath sounds Cardiovascular: regular rate, rhythm, no gallop, no murmur Gastrointestinal: distended, tenderness (lower abd), other (ascites) Extremities: normal range of motion, non-tender, pedal edema (bilat, right>left ) Neurologic/Psychiatric: no motor/sensory deficits, other (no asterixis) Skin: jaundice, pallor Lymphatic: no adenopathy Focused Exam Lactate Level 12/28/18 04:51: Lactic Acid Level Laboratory Tests Test 12/28/18 04:51 Progress/Results/Core Measures Results/Orders Lab Results Laboratory Tests Test 12/28/18 04:51 Range/Units White Blood Count 9.7 4.3-11.0 10^3/uL Red Blood Count 2.90 L 4.35-5.85 10^6/uL Hemoglobin 8.3 L 13.3-17.7 G/DL Hematocrit 26 L 40-54 % Mean Corpuscular Volume 88 80-99 FL Mean Corpuscular Hemoglobin 29 25-34 PG Mean Corpuscular Hemoglobin Concent 32 32-36 G/DL Red Cell Distribution Width 22.1 H 10.0-14.5 % Platelet Count 229 130-400 10^3/uL Mean Platelet Volume 11.0 H 7.4-10.4 FL Neutrophils (%) (Auto) 73 42-75 % Lymphocytes (%) (Auto) 15 12-44 % Monocytes (%) (Auto) 10 0-12 % Eosinophils (%) (Auto) 1 0-10 % Basophils (%) (Auto) 0 0-10 % Neutrophils # (Auto) 7.0 1.8-7.8 X 10^3 Lymphocytes # (Auto) 1.4 1.0-4.0 X 10^3 Monocytes # (Auto) 1.0 0.0-1.0 X 10^3 Eosinophils # (Auto) 0.1 0.0-0.3 10^3/uL Basophils # (Auto) 0.0 0.0-0.1 10^3/uL Prothrombin Time 45.1 *H 12.2-14.7 SEC INR Comment 4.5 H 0.8-1.4 Activated Partial Thromboplast Time 99 H 24-35 SEC Sodium Level 130 L 135-145 MMOL/L Potassium Level 4.0 3.6-5.0 MMOL/L Chloride Level 100 98-107 MMOL/L Carbon Dioxide Level 17 L 21-32 MMOL/L Anion Gap 13 5-14 MMOL/L Blood Urea Nitrogen 16 7-18 MG/DL Creatinine 1.07 0.60-1.30 MG/DL Estimat Glomerular Filtration Rate > 60 BUN/Creatinine Ratio 15 Glucose Level 185 H 70-105 MG/DL Calcium Level 8.4 L 8.5-10.1 MG/DL Corrected Calcium 9.6 8.5-10.1 MG/DL Magnesium Level 1.3 L 1.8-2.4 MG/DL Total Bilirubin 2.8 H 0.1-1.0 MG/DL Aspartate Amino Transf (AST/SGOT) 42 H 5-34 U/L Alanine Aminotransferase (ALT/SGPT) 28 0-55 U/L Alkaline Phosphatase 143 H 40-136 U/L Total Protein 5.4 L 6.4-8.2 GM/DL Albumin 2.5 L 3.2-4.5 GM/DL Lipase 24 8-78 U/L My Orders Orders - CAROL ANN THOMAS MD Comprehensive Metabolic Panel (12/28/18 04:26) Lipase (12/28/18 04:26) Ua Culture If Indicated (12/28/18 04:26) Ed Iv/Invasive Line Start (12/28/18 04:26) Cbc With Automated Diff (12/28/18 04:26) Ct Abdomen/Pelvis Wo (12/28/18 04:26) Lactic Acid Analyzer (12/28/18 04:26) Magnesium (12/28/18 04:26) Protime With Inr (12/28/18 04:26) Partial Thromboplastin Time (12/28/18 04:26) Ed Iv/Invasive Line Start (12/28/18 04:28) Ns Iv 500 Ml (Sodium Chloride 0.9%) (12/28/18 04:28) Medications Given in ED Current Medications Medications Dose Ordered Sig/Mony Route Start Time Stop Time Status Last Admin Dose Admin Sodium Chloride 500 ml @ 0 mls/hr Q0M ONCE IV 12/28/18 04:28 12/28/18 04:29 UNV 12/28/18 05:15 0 MLS/HR Vital Signs/I&O 12/28/18 04:17 Temp 96.9 Pulse 97 Resp 16 B/P (MAP) 98/71 (80) Pulse Ox 100 O2 Delivery Room Air Progress Progress Note : Time: 04:32 Progress Note Patient appears to be somewhat dehydrated. I explained the fine-line of dehydration and overhydration in light of his ascites and liver failure. We will give 500 mL of normal saline and workup his abdominal pain includes CT scan and laboratory testing. Discussed with patient and his family who understand and agree with the plan. 0510 Feeling slightly better after 200 of 500ml of NS. Bp improved with systolic over 100. Discussed tests back and those that are pending. 0542 feeling quite a bit better. I discussed his significant abnormal labs. He would like to go home and contact his oncologist at for further care. I explained that his metastatic disease, large amount of ascites and severe liver failure. They are understanding of this risk and wish to proceed with their plan. They expressed that they were happy with their care here. Diagnostic Imaging Diagonstic Imaging: CT Plain Films/CT/US/NM/MRI: abdomen Comments Cirrhotic appearance of the liver. Large volume of ascites. Questionable metastatic implants omentum and mesentery. No acute findings identified. Dr. Jesus Villanueva Reviewed: [facility] Imp[facility] Primary Impression: Esophageal varices in alcoholic cirrhosis Additional Impressions: Alcoholic cirrhosis of liver with ascites Biliary tract cancer Prolonged INR Elevated lactic acid level Abdominal pain Qualified Codes: R10.84 - Generalized abdominal pain Dehydration Disposition: 01 HOME, SELF-CARE Condition: Improved Departure-Patient Inst. Decision time for Depature: 05:45 Referrals: NO,LOCAL PHYSICIAN (PCP/Family) Primary Care Physician to contact your physicians at for follow up later today and possible admission Patient Instructions: Fluid in the Belly (Ascites) (DC), Dehydration, Adult (DC ), Prothrombin Time (PT) Test and International Normalized Ratio (INR) CAROL ANN THOMAS MD December 28, 2018 04:30
[2018-12-28 05:00] LABS: HEMATOCRIT 26 % (40-54); HEMOGLOBIN 8.3 G/DL (13.3-17.7); MEAN CORPUSCULAR HEMOGLOBIN 29 PG (25-34); MEAN CORPUSCULAR HGB CONC 32 G/DL (32-36); MEAN CORPUSCULAR VOLUME 88 FL (80-99); RED CELL DISTRIBUTION WIDTH 22.1 % (10.0-14.5); WHITE BLOOD COUNT 9.7 10^3/uL (4.3-11.0)
[2018-12-28 05:01] LABS: BASOPHILS % (AUTO) 0 % (0-10); EOSINOPHILS # (AUTO) 0.1 10^3/uL (0.0-0.3); EOSINOPHILS % (AUTO) 1 % (0-10); LYMPHOCYTES # (AUTO) 1.4 X 10^3 (1.0-4.0); LYMPHOCYTES % (AUTO) 15 % (12-44); MONOCYTES % (AUTO) 10 % (0-12); NEUTROPHILS % (AUTO) 73 % (42-75); PLATELET COUNT 229 10^3/uL (130-400)
--- NOTE | 2018-12-28 05:08 | NUR ---
pt. reported he has ca of the bile duct and liver ascities. 6 liters of fluid was removed on december 25. he doctors at . pt. stated he takes the lactalose so his amnonia levels will keep from being elevated causing confusion. pt. is a/o at this time.
[2018-12-28 05:23] LABS: INR 4.5 (0.8-1.4); PROTHROMBIN TIME PATIENT 45.1 SEC (12.2-14.7)
[2018-12-28 05:28] LABS: BUN/CREATININE RATIO 15; CARBON DIOXIDE 17 MMOL/L (21-32); CHLORIDE 100 MMOL/L (98-107); CREATININE SERUM 1.07 MG/DL (0.60-1.30); GFR ESTIMATED > 60; GLUCOSE 185 MG/DL (70-105); SODIUM 130 MMOL/L (135-145)
[2018-12-28 05:29] LABS: ALANINE AMINOTRANSFERASE 28 U/L (0-55); ALKALINE PHOSPHATASE 143 U/L (40-136); BILIRUBIN,TOTAL 2.8 MG/DL (0.1-1.0); CALCIUM 8.4 MG/DL (8.5-10.1); TOTAL PROTEIN 5.4 GM/DL (6.4-8.2)
[2018-12-28 05:30] LABS: ALBUMIN 2.5 GM/DL (3.2-4.5); LIPASE 24 U/L (8-78)
--- NOTE | 2018-12-28 06:05 | NUR ---
was getting ready to discharge the patient and was taking him in a wheel chair to check out and the patient passed out, so the doctor was notified, the patient was taken back to room 5 and was assisted back to bed. The patient stated he needed to have a bm so he was assisted to the commode and patient was monitored.
--- NOTE | 2018-12-28 06:29 | Diagnostic Imaging Report ---
PROCEDURE: CT abdomen and pelvis without contrast. TECHNIQUE: Multiple contiguous axial images were obtained through the abdomen and pelvis without the use of intravenous contrast. Auto Exposure Controls were utilized during the CT exam to meet ALARA standards for radiation dose reduction. INDICATION: Pain, dizziness, history of biliary ductal cancer. No priors. FINDINGS: Large volume of abdominal pelvic peritoneal fluid is present. Some hazy nodular induration and increased density of the mesentery and omentum. Carcinomatosis and malignant ascites pattern is suspected. There is nodularity and heterogeneous density of the small liver suggestive of cirrhosis. No measurable or discrete liver mass is apparent at this nonenhanced exam. The spleen size is within normal limits. There are nonobstructing renal calculi. There is an exophytic left renal nodule measuring 3.3 cm. It shows some peripheral calcifications as well as mixed internal density probably complex cyst, but its nonemergent sonographic correlation recommended. There is no evidence for bowel, biliary or urinary tract obstruction. The gallbladder, however, is distended. No visualized gallstone. The pancreas and adrenals are negative. No free air or pneumatosis. No suspicious lytic or sclerotic bone lesion. IMPRESSION: 1. 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 Correlation with fluid analysis recommended if not already performed. 2. Small nodular cirrhotic appearing liver with normal spleen size. Hydropic distention of the gallbladder without visualized stone. 3. No evidence for bowel, biliary or urinary tract obstruction. 4. Renal calculus disease and exophytic likely complex left renal cyst, however, nonemergent sonographic correlation recommended. Dictated by: Dictated on workstation # [id number]
--- NOTE | 2018-12-28 06:33 | NUR ---
Doctor Griffin in to see the patient.
[2018-12-28 08:07] VITALS: BP 98/71
--- NOTE | 2018-12-28 09:05 | NUR ---
Called [facility] to check on bed availability, marketing outreach coordinator stated they are waiting on discharges and will notify us when a bed becomes available.
[2018-12-28] MEDS ORDERED: NS IV 500 ML 500 ML ONE (09:45)
[2018-12-28] MEDS ORDERED: NS IV 500 ML 500 ML IV SCH (10:00)
[2018-12-28 11:36] VITALS: BP 95/53
== END 2018-12-28 11:51 | disposition short-term general hospital (02) ==
LOC: EDUNIT# 04:10 → ER FS 04:12
DX: K70.30 Alcoholic cirrhosis of liver without ascites (principal); I85.10 Secondary esophageal varices without bleeding; C22.1 Intrahepatic bile duct carcinoma; R74.0 Nonspecific elevation of levels of transaminase and lactic acid dehydrogenase [LDH]; E86.0 Dehydration; I10 Essential (primary) hypertension; F10.10 Alcohol abuse, uncomplicated; Z88.5 Allergy status to narcotic agent; Z79.01 Long term (current) use of anticoagulants; Z87.19 Personal history of other diseases of the digestive system; Z92.21 Personal history of antineoplastic chemotherapy
CPT/HCPCS: 36415; 74176; 80053; 82140; 83605; 83690; 83735; 85025; 85610; 85730; 93005; 96360; 96361; 99291